=== PATIENT | male | born 1960 | race Caucasian/White ===

== ENCOUNTER 2019-04-15 14:40 | Inpatient (IN) | payer OTHER ==
--- NOTE | 2019-04-15 15:26 | RAD ---
RADIOGRAPH CHEST 1 VIEW: DATE: 04/15/2019 HISTORY: 59-year-old male with chest pain FINDINGS: The visualized lung urbina are clear. The cardiomediastinal silhouette and hilar shadows are normal. The lateral costophrenic angles are sharp. IMPRESSION: Negative.
[2019-04-15 15:29] LABS: #Basophils 0.1 thou/uL (0.0-0.2); #Eosinphils 0.1 thou/uL (0.0-0.7); #Lymphocytes 1.8 thou/uL (1.20-3.40); #Monocytes 0.8 thou/uL (0.11-0.59); #Neutrophils 6.8 thou/uL (1.40-6.50); %Basophils 0.6 % (0.0-1.0); %Monocytes 8.2 % (0.0-10.0); %Neutrophils 71.2 % (42.0-75.0); Hemoglobin 12.7 g/dL (14.0-18.0); Mean Corpuscular HGB CONC 34.8 g/dL (32.0-36.0); Mean Corpuscular Hemoglobin 34.8 pg (27.0-31.0); Mean Platelet Volume 7.5 fL (7.4-10.4); Platelet Count 163 thou/uL (130-400); RBC Distribution Width 12.3 % (11.5-14.5); Red Blood Cell (RBC) Count 3.64 mill/uL (4.70-6.10); White Blood Cell (WBC) Count 9.5 thou/uL (4.8-10.8)
[2019-04-15 15:48] LABS: ALT (SGPT) 10 U/L (8-55); AST (SGOT) 12 U/L (5-34); Albumin 3.5 g/dL (3.5-5.0); Alkaline Phosphatase 69 U/L (40-150); Anion Gap 12 mmol/L (10-20); BUN (Urea Nitrogen) 36 mg/dL (8.4-25.7); Bilirubin, Total 0.4 mg/dL (0.2-1.2); Calc. Creatinine Clearance 0 mL/min (70-130); Calcium 8.4 mg/dL (7.8-10.44); Carbon Dioxide 21 mmol/L (22-29); Chloride 112 mmol/L (98-107); Estimated GFR-MDRD 29; Globulin 2.3 g/dL (2.4-3.5); Glucose 86 mg/dL (70-105); Potassium 4.7 mmol/L (3.5-5.1); Protein, Total 5.8 g/dL (6.0-8.3); Sodium 140 mmol/L (136-145)
[2019-04-15 16:11] LABS: CKMB 1.4 ng/mL (0-6.6)
--- NOTE | 2019-04-15 16:20 | PDOC.FPRHP ---
- History of Present Illness Chief Complaint: Chest pain History of Present Illness: 59 yo male with hx of HTN, HLD, GERD, and degenerative disc disease presented to the ED today via EMS for chest pain and near syncope. Pt stated that he was working hard doing lawn work when he developed a burning pain in his mid back that radiated between his shoulder blades and into his chest. This was accompanied by shortness of breath and near syncope. After admission to the ED the pt's pain resolved. Pt states that he has experienced episodes like this 6- 8 times over the last 2 years, but not this severe. He denies any known cardiac disease. Family hx significant for a brother with an DE in his mid 50's. He believes that he has had a stress test before but does not recall when or what the results were. Pt admits to drinking very little fluid recently and to working outside in the heat more. ED Course: In route pt had systolic pressures in the 70's, responded appropriately to two 1L boluses to systolics 90-110. Initial troponin 0.032-->0.048, Cr 2.29. Consulted cardiology who suggested IMCU admission and CT aortic dissection protocol. - Allergies/Adverse Reactions Allergies Allergy/AdvReac Type Severity Reaction Status Date / Time Penicillins Allergy Verified 08/15/15 13:35 - History PMHx: HTN, GERD, lumbar DDD, HLD PSHx: Vasectomy FHx: Brother LANIE @56yo Social: 1-1.5ppd smoker, no alcohol or drugs, disabled - Review of Systems General: denies: fever/chills, fatigue Eyes: reports: vision changes (bright light during episode) Respiratory: denies: cough, congestion Cardiovascular: reports: chest pain. denies: palpitation, edema Gastrointestinal: denies: nausea, vomiting, abdominal pain Genitourinary: denies: incontinence Skin: denies: rashes Musculoskeletal: reports: pain (chronic lower back pain) Neurological: reports: syncope (near syncope today). denies: weakness - Vital signs BP: 108/64 HR: 73 RR: 18 Tmax: 97.7 Pox: 99% on RA Wt: 73 - Physical Exam Constitutional: NAD, awake, alert and oriented, well developed HEENT: EOMI Neck: supple, no JVD Chest: no-tender to palpation Heart: RRR, other (distant heart sounds) Lungs: CTAB, no respiratory distress Musculoskeletal: normal structure, normal tone Neurological: no focal deficit, CN II-XII intact Skin: no rash/lesions, capillary refill <2 seconds Psychiatric: normal mood and affect, good judgment and insight, intact recent and remote memory FMR H&P: Results - Labs Result Diagrams: 04/15/19 15:16 04/15/19 15:16 Lab results: WBC 9.5 thou/uL (4.8-10.8) 04/15/19 15:16 Hgb 12.7 g/dL (14.0-18.0) L 04/15/19 15:16 Hct 36.4 % (42.0-52.0) L 04/15/19 15:16 MCV 100.0 fL (78.0-98.0) H 04/15/19 15:16 Plt Count 163 thou/uL (130-400) 04/15/19 15:16 Neutrophils % 71.2 % (42.0-75.0) 04/15/19 15:16 Sodium 140 mmol/L (136-145) 04/15/19 15:16 Potassium 4.7 mmol/L (3.5-5.1) 04/15/19 15:16 Chloride 112 mmol/L (98-107) H 04/15/19 15:16 Carbon Dioxide 21 mmol/L (22-29) L 04/15/19 15:16 BUN 36 mg/dL (8.4-25.7) H 04/15/19 15:16 Creatinine 2.29 mg/dL (0.7-1.3) H 04/15/19 15:16 Glucose 86 mg/dL (70-105) 04/15/19 15:16 Calcium 8.4 mg/dL (7.8-10.44) 04/15/19 15:16 Total Bilirubin 0.4 mg/dL (0.2-1.2) 04/15/19 15:16 AST 12 U/L (5-34) 04/15/19 15:16 ALT 10 U/L (8-55) 04/15/19 15:16 Alkaline Phosphatase 69 U/L (40-150) 04/15/19 15:16 CK-MB (CK-2) 1.4 ng/mL (0-6.6) 04/15/19 15:16 B-Natriuretic Peptide 23.2 pg/mL (0-100) 04/15/19 15:16 Serum Total Protein 5.8 g/dL (6.0-8.3) L 04/15/19 15:16 Albumin 3.5 g/dL (3.5-5.0) 04/15/19 15:16 - EKG Interpretation EK LEAD EKG INTERPRETATION 12 lead EKG shows normal sinus rhythm, Rate (beats per minute): 78, Interpretation: normal EKG, [place] normal, Clinical impression: Normal EKG, No ischemic changes. MT interval 154 ms QRS duration 98 ms QT/QTc 389/444 ms. 12 lead EKG interpreted by Emergency Department Physician at time of study, 12 lead EKG shows normal sinus rhythm, Rate (beats per minute): 69, Interpretation : normal EKG, [place] normal, Clinical impression: Normal EKG, MT interval 69 ms QRS duration 98 ms QT/QTc 396/424 ms. - Radiology Interpretation Chest x-ray Status: report reviewed by me (Negative) FMR H&P: A/P - Problem List (1) Atypical chest pain Current Visit: Yes Status: Acute Code(s): R07.89 - OTHER CHEST PAIN (2) Troponin level elevated Current Visit: Yes Status: Acute Code(s): R74.8 - ABNORMAL LEVELS OF OTHER SERUM ENZYMES (3) Acute kidney injury Current Visit: Yes Status: Acute Code(s): N17.9 - ACUTE KIDNEY FAILURE, UNSPECIFIED (4) Hypertension Current Visit: Yes Status: Acute Code(s): I10 - ESSENTIAL (PRIMARY) HYPERTENSION (5) Chronic low back pain Current Visit: Yes Status: Acute Code(s): M54.5 - LOW BACK PAIN; G89.29 - OTHER CHRONIC PAIN - Plan Atypical Chest Pain Chest pain and near syncope when exerting himself, multiple episodes in the past. - Dr. Reece cardiology consulted, appreciate recommendations - CT aorta with dissection protocol ordered - Heart score of 6 - Initially low BP, responded to fluid boluses, cont w/ maintnence NS @ 125 - Aspirin and plavix - Repeat EKG if chest pain returns - PRN ntg if BP allows - Stress test and echo ordered for tomorrow if pt does not undergo cardiac cath - NPO after midnight - Risk factors: HTN, HLD, smoking, family history Acute Kidney Injury Patient admits to decreased PO intake and increased sweating due to recent yard work. No known history of renal disease - Initial Cr 2.26 - Received 3L boluses throughout ED workup - NS @ 125 - Will watch following contrast study - Trend Cr Hypertension - Home medications: Lisinopril and HCTZ - Holding due to hypotension Chronic low back pain - Continue home meds VTE prophylaxis: SCD's, pt is ambulatory Disposition/LOS: Admit to IMCU Expected LOS >48hrs FMR H&P: Upper Level - Pertinent history 59 yo M w/ PMH of HTN, HLD, tobacco abuse and gerd who presents for acute onset low back pain that radiated into his chest and back. Pt reports similar episodes occurring at least 6-8 times previously and the first episode being approx 2 years ago. He denied assocaited NCDC, SOB and diaphoresis. No numbness or tingling. He reports the pain usually subsides with rest and currently denies any pain. - Pertinent findings ROS: Gen No fever chills HEENT: No headached. Does report bright light vision changes associated with pain, currently denies CV: Reports CP, denies peripheral edema and palpitations Respiratory: Denies cough, congestion, sob, wheezing GI: Denies NVDC : No CVA tenderness MSK: Reports rt paralumbar mm pain that radiates upward, currently pain free Neuro: No headaches, numbness or tingling PE: Gen: NAD resting comfortably in bed HEENT: NCAT, PERRLA, EOMI CV: RRR No MRG, peripheral pulses equal throughout Respiratory: Lungs CTA bl no w/r/r Abd: Soft NTND bsx4 Neuro: No focal deficit MSK: No ttp rt paralumbar - Plan Date/Time: 04/15/19 1620 ITrevin, DO, have evaluated this patient and agree with findings/ plan as outlined by international specialist resident. Pertinent changes/additions are listed here. 1) Atypical chest pain: - pt has significant CAD risk factors and mildly elevated troponin, cardiology consulted from the ED, appreciate recs - will admit to IMCU given CP and low BP without identifiable source - trend troponins - cont IVF and monitor BP - EKG showed NSR 2) Elevated troponins: -see #1 - trend - will need stress/echo vs cardiac catheterization tbd by cardiology 3) TIFFANIE vs CKD - Pt admits to increase outside work - possibly 2/2 dehydration given low bp - s/p 3L NS in ED - cont IVF and trend daily BMP 4) HTN: hold home meds as pt currently hypotensive - if no resolution of renal function, consider dc rhonda - add medications as appropriate 5) HLD - cont statin 6) Macrocytic anemia - B12 folate in am - trend H/h 7) Tobacco abuse: - psychosocial rehabilitation counselor on cessation Dispo: stable, admit to IMCU and monitor pressures. Cont IVF resuscitation. Cardiology consulted appreciate recommendations. PPX: LVX, Protonix PCP: JOSE Varela OOT Code Status: Full
[2019-04-15 16:39] LABS: INR-International Normal Ratio 1.1; PTT 28.5 SEC (22.9-36.1); Prothrombin Time 13.9 SEC (12.0-14.7)
[2019-04-15 17:33] LABS: Troponin I 0.048 ng/mL (< 0.028)
[2019-04-15] MEDS ORDERED: Clopidogrel Bisulfate 300 MG TAB PO SCH (18:42)
[2019-04-15] MEDS ORDERED: Aspirin 81 mg Enteric Coated Tablet PO SCH (19:15)
[2019-04-15] MEDS ORDERED: Sodium Chloride 0.9% 1,000 ML IV SCH ×2 (19:15→19:38)
[2019-04-15] MEDS ORDERED: Nitroglycerin 0.4 MG TAB (25 Tab Bottle) PO PRN (19:38)
[2019-04-15] MEDS ORDERED: Ondansetron ODT 4 MG TAB PO PRN (19:38)
[2019-04-15] MEDS ORDERED: Ondansetron PF 4 MG/2 ML Vial IVP PRN (19:38)
[2019-04-15] MEDS ORDERED: Acetaminophen 325 MG TAB PO PRN (19:38)
[2019-04-15 20:10] VITALS: BMI 26.9
[2019-04-15 20:41] LABS: Cardiac Risk 8.2 (Less than 4.5); Cholesterol 205 mg/dl (< 200 Desired); HDL Cholesterol 25 mg/dL (>60 Neg Risk); Triglycerides 562 mg/dL (Less than 150)
[2019-04-15 20:47] LABS: Troponin I 0.037 ng/mL (< 0.028)
[2019-04-15] MEDS ORDERED: Famotidine/PF 20 mg/2ml Vial SLOW IVP SCH (21:00)
--- NOTE | 2019-04-15 23:20 | HP ---
I have examined the patient. I have discussed the case with Dr. Boateng. HISTORY OF PRESENT ILLNESS: Briefly, Mr. 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 He states he had been working for about 4 hours when he developed some right-sided back and chest pain radiating to the front of his chest. It became so severe that he "dropped to his knees." He was also short of breath. EMS was called and he was subsequently transferred to our hospital for further evaluation. PHYSICAL EXAMINATION: VITAL SIGNS: He was initially hypotensive with systolics in the 70s to 80s, now he is at 116/80. His pulse rate is now 66 and regular. GENERAL: He is awake, alert, in no distress. He states that his pain is resolved. EARS, NOSE, AND THROAT: No erythema or exudate. NECK: Supple. LUNGS: Clear, but diminished. No rales, rhonchi, or wheezes. CARDIAC: Heart rhythm is regular. S4 gallop. No murmur or rub noted. LUNGS: Clear, but diminished breath sounds. ABDOMEN: Flat and soft. No guarding, rebound, or rigidity. NEUROLOGICAL: No focal deficits. LABORATORY DATA: Troponins are negative x2 at 0.032 and 0.048. Sodium 140, potassium 4.7, chloride 112, bicarb 21, BUN is 36, and creatinine is 2.29. Liver enzymes are normal. CBC; white count is 9500, hemoglobin 12.7, and hematocrit 36.4 with an MCV of 100. His EKG shows no acute ischemic changes. ASSESSMENT: Chest and back pain. Comment; the patient does have several cardiac risk factors including male older than 50 with high cholesterol, high blood pressure, and heavy smoking history. I believe we should at least do a stress Myoview. Cardiology has already been consulted. He also evidently had a cardiac workup at [facility] in 2016, and we should try to get these records. Given the degree of back pain, he may be arndt to check a CPK for rhabdo in view of the acute kidney injury. PLAN: Plan is to admit the patient for observation and evaluation. Job ID: [id number]
--- NOTE | 2019-04-16 01:18 | CON ---
DATE OF CONSULTATION: CONSULTING PHYSICIAN: Jarrell Renner MD HISTORY OF PRESENT ILLNESS: Patient is a 59-year-old gentleman, who presents for evaluation of chest discomfort and weakness. The patient states for the past several years, he has back discomfort which radiates into his chest. He states this only occurs with exertion. The patient also noticed that it only occurs with severe exertion. Today, the patient once again was out, working for several hours in the heat when he became weak, lightheaded, and developed back discomfort. Patient denies having any present chest discomfort. PAST MEDICAL HISTORY: 1. Hypertension. 2. Dyslipidemia. PAST SURGICAL HISTORY: Vasectomy. MEDICATIONS: 1. Lisinopril 40 daily. 2. Zocor 10 at bedtime. 3. Hydrochlorothiazide 12.5 daily. 4. Gabapentin 600 mg daily. FAMILY HISTORY: There is positive family history of heart disease. SOCIAL HISTORY: Long history of tobacco abuse. REVIEW OF SYSTEMS: Ten-point system otherwise unremarkable. PHYSICAL EXAMINATION: GENERAL: This is a well-developed gentleman, in no acute distress. VITAL SIGNS: Blood pressure is 120/70. NECK: No jugular venous distention. LUNGS: Clear to auscultation. HEART: Regular rate and rhythm. Normal S1, S2. ABDOMEN: Nondistended. EXTREMITIES: Show no edema. VASCULAR: Radial pulses are 2+. LABORATORY DATA: Sodium 140, potassium 4.7, chloride 112, bicarbonate 21, BUN 36, and creatinine 2.29. Troponin was 0.032 and BNP was 23. INR 1.11. EKG revealed normal sinus rhythm with a normal ECG. IMPRESSION: 1. Exertional chest discomfort. 2. Hypertension. 3. Dyslipidemia. 4. Renal insufficiency. PLAN: This gentleman presents with exertional chest discomfort. The patient's creatinine is elevated. He has been dehydrated. The patient will undergo IV hydration. Further recommendations will follow. Job ID: [id number] [facility]
[2019-04-16] MEDS: Sodium Chloride 0.9% 1,000 ML IV SCH ×2 (04:23→13:04)
--- NOTE | 2019-04-16 06:41 | PDOC.FM ---
- Subjective Subjective: Pt denies any chest pain or shortness of breath through the night. We discussed the current plan for stress and echo today pending any new recommendations from cardiology. He expressed understanding of the plan and his questions were answered. - Objective MAR Reviewed: Yes Vital Signs & Weight: Vital Signs (12 hours) Temp Pulse Ox 04/16/19 04:16 97.8 F 04/15/19 23:38 98.5 F 04/15/19 20:00 98 04/15/19 19:17 98.0 F Weight Weight 75.523 kg Most Recent Monitor Data Heart Rate from ECG 61 NIBP 114/69 NIBP BP-Mean 84 Respiration from ECG 18 SpO2 92 I&O: 04/14/19 04/15/19 04/16/19 06:59 06:59 06:59 Intake Total 1850 Output Total 750 Balance 1100 Result Diagrams: 04/16/19 08:14 04/16/19 08:13 Phys Exam - Physical Examination Constitutional: NAD HEENT: moist MMs Neck: no JVD, full ROM Respiratory: no wheezing, clear to auscultation bilateral Cardiovascular: RRR heart sounds are distant Gastrointestinal: soft, non-tender Musculoskeletal: no edema, pulses present Neurological: moves all 4 limbs Psychiatric: normal affect, A&O x 3 Skin: no rash Dx/Plan (1) Atypical chest pain Code(s): R07.89 - OTHER CHEST PAIN Status: Acute (2) Acute kidney injury Code(s): N17.9 - ACUTE KIDNEY FAILURE, UNSPECIFIED Status: Acute (3) Troponin level elevated Code(s): R74.8 - ABNORMAL LEVELS OF OTHER SERUM ENZYMES Status: Acute (4) Hypertension Code(s): I10 - ESSENTIAL (PRIMARY) HYPERTENSION Status: Acute (5) Chronic low back pain Code(s): M54.5 - LOW BACK PAIN; G89.29 - OTHER CHRONIC PAIN Status: Acute - Plan Plan: Atypical chest pain: - pt has significant CAD risk factors and mildly elevated troponin, cardiology consulted from the ED, appreciate recs - will admit to IMCU given CP and low BP without identifiable source - daily aspirin 325mg - trend troponins, below - Lipid profile: hypertriglyceridemia and hypercholesterolemia - cont IVF and monitor BP - EKG showed NSR, repeat if new CP Elevated troponins: - trend 0.032 --> 0.048 --> 0.037 - will need stress/echo today vs cardiac catheterization tbd by cardiology TIFFANIE vs CKD - Pt admits to increase outside work and decreased fluid intake - possibly 2/2 dehydration given low bp - s/p 3L NS in ED - cont IVF, NS @ 125 - BMP trend: Cr 2.26 --> 1.51 HTN: hold home meds as pt currently hypotensive - if no resolution of renal function, consider dc VICENTE - add medications as appropriate HLD - cont statin Macrocytic anemia - B12 folate in am - trend 12.7 --> 13.1 Tobacco abuse: - sexual abuse counsellor on cessation Dispo: stable, admit to IMCU and monitor pressures. Cont IVF resuscitation. Cardiology consulted appreciate recommendations. PPX: LVX, Protonix PCP: JOSE TysonOT Code Status: Full
[2019-04-16 08:22] LABS: Hemoglobin 13.1 g/dL (14.0-18.0)
[2019-04-16 08:40] LABS: Anion Gap 12 mmol/L (10-20); BUN (Urea Nitrogen) 32 mg/dL (8.4-25.7); Calc. Creatinine Clearance 57 mL/min (70-130); Calcium 8.2 mg/dL (7.8-10.44); Carbon Dioxide 20 mmol/L (22-29); Chloride 113 mmol/L (98-107); Estimated GFR-MDRD 48; Glucose 94 mg/dL (70-105); Potassium 4.7 mmol/L (3.5-5.1); Sodium 140 mmol/L (136-145)
[2019-04-16] MEDS ORDERED: Aspirin 325 mg Enteric Coated Tablet PO SCH (09:00)
[2019-04-16] MEDS ORDERED: Ubidecarenone 50 MG CAP PO SCH (09:00)
--- NOTE | 2019-04-16 12:22 | PRG ---
DATE OF SERVICE: 04/16/2019 Mr. Gutierrez is down for a stress test and further workup will depend on the results of this. He has had no further significant chest discomfort since admission. His troponins are negative. He was seen in consultation by Dr. Reece, who awaits further hydration of the patient before further decision making. We appreciate his input. Job ID: [id number]
--- NOTE | 2019-04-16 12:49 | NM ---
NM Cardiac Stress W EF WF History: Chest pain Comparison: Nuclear medicine stress test 2011 Findings: Stress and rest performed after the intravenous administration of 29.1 and 11 mCi technetiu m 99m sestamibi, respectively. Adequate left ventricular uptake of radiotracer. Normal wall motion. Calculated ejection fraction is 65%. Impression: Normal nuclear medicine cardiac stress test and ejection fraction.
[2019-04-16 15:24] VITALS: TEMP 99.2
[2019-04-16] MEDS ORDERED: Atorvastatin Calcium 40 MG TAB PO SCH (21:00)
--- NOTE | 2019-04-17 04:13 | DIS ---
DATE OF ADMISSION: 04/15/2019 DATE OF DISCHARGE: 04/16/2019 RESIDENT: Naif Boateng DO. ADMITTING ATTENDING: Jarrell Renner MD DISCHARGE ATTENDING: Jarrell Renner MD. CONSULTS: Dr. Reece, Cardiology. PRIMARY DIAGNOSES: Atypical chest pain Elevated troponin levels Acute kidney injury. SECONDARY DIAGNOSES: Hypertension Chronic low back pain Macrocytic anemia. HISTORY OF PRESENT ILLNESS AND HOSPITAL COURSE: A 59-year-old male with history of hypertension, hyperlipidemia, GERD, and degenerative disk disease, presented to the ED today via EMS for chest pain and near syncope. The patient stated that he was working hard doing lawn work when he developed a burning pain in his mid back that radiated between his shoulder blades and then to his chest. This was accompanied by shortness of breath and near syncope. After admission to the ED, the patient's pain resolved. The patient states that he has experienced episodes like this 6 to 8 times over the last 2 years but never this severe. He denies any known cardiac disease. Family history is significant for a brother with an UT in his mid 50s. He believes that he has had a stress test before but he does not recall when or what the results were. The patient admits to drinking very little fluid recently and to working outside in the heat more. En route to the ED, the patient had systolic pressures in the 70s which responded after 2 fluid boluses to systolics in the 90s to 110. Initial troponins trended from 0.032 to 0.048 to 0.038, initial creatinine was 2.29. Dr. Reece, Cardiology was consulted and suggested admission to the IM and did not feel a CTA of the aorta was necessary. The patient was started on normal saline at 150/hour to continue fluid resuscitation. The following day, the patient had a stress test which resulted normal. Dr. Reece saw him again and felt like he was stable for discharge and out pt cardiology follow up for possible further workup. The patient did not experience anymore chest pain throughout his stay. Following fluid resuscitation, the patient's creatinine improved to 1.51 and his blood pressures normalized. Lipid profile showed a triglyceride level of 562 and cholesterol of 205. Painter Drum suggested that his Crestor be stopped and he be started on atorvastatin 40 mg daily as well as Vascepa 2 g daily along with his home blood pressure medications and full dose daily aspirin. DISCHARGE MEDICATIONS: 1. Nexium 20 mg p.o. daily. 2. Gabapentin 600 mg p.o. at bedtime. 3. Hydrochlorothiazide 12.5 p.o. daily. 4. Lisinopril 40 mg p.o. daily. 5. Aspirin 325 mg p.o. daily. 6. Lipitor 40 mg p.o. at bedtime. 7. Vascepa 2 g p.o. b.i.d. 8. Coenzyme Q10 100 mg p.o. daily. DISPOSITION: Stable. DISCHARGE INSTRUCTIONS: 1. Location: Home. 2. Diet: Heart healthy. 3. Activity: As tolerated. No restrictions. 4. Follow up with PCP, Dr. Raymundo Varela within 7 days and Cardiology as recommended. Job ID: [id number] [id number]
== END 2019-04-16 18:24 | disposition home or self-care (01) | DRG 313 ==
LOC: ERS 14:40 → IMCU/EMU 17:11
PROVIDERS: ADMIT Family Medicine; ATTEND Family Medicine
DX: R07.89 Other chest pain (principal); N17.9 Acute kidney failure, unspecified; E78.5 Hyperlipidemia, unspecified; M51.36 Other intervertebral disc degeneration, lumbar region; F17.210 Nicotine dependence, cigarettes, uncomplicated; K21.9 Gastro-esophageal reflux disease without esophagitis; R74.8 Abnormal levels of other serum enzymes; G89.29 Other chronic pain; E86.0 Dehydration; I12.9 Hypertensive chronic kidney disease with stage 1 through stage 4 chronic kidney disease, or unspecified chronic kidney disease; D63.1 Anemia in chronic kidney disease; N18.9 Chronic kidney disease, unspecified; Z88.0 Allergy status to penicillin; Z98.52 Vasectomy status; Z79.899 Other long term (current) drug therapy
CPT/HCPCS: 36415; 71045; 78452; 80048; 80053; 80061; 82553; 83880; 84484; 85014; 85018; 85025; 85610; 85730; 90471; 90732; 93005; 93017; 93306; A9500; G0009; S0028

== ENCOUNTER 2019-07-12 22:12 | Emergency (ER) | payer OTHER ==
[~2019-07-12 22:12] MED LIST: ISOVUE-370 76%-LOCM 1 ML ONE
[2019-07-12 23:41] LABS: #Basophils 0.1 thou/uL (0.0-0.2); #Eosinphils 1.6 thou/uL (0.0-0.7); #Lymphocytes 2.5 thou/uL (1.20-3.40); #Monocytes 0.7 thou/uL (0.11-0.59); %Basophils 0.5 % (0.0-1.0); %Eosinophils 12.7 % (0.0-10.0); %Lymphocytes 19.2 % (21.0-51.0); %Monocytes 5.5 % (0.0-10.0); %Neutrophils 62.1 % (42.0-75.0); Hemoglobin 16.1 g/dL (14.0-18.0); Mean Corpuscular HGB CONC 34.2 g/dL (32.0-36.0); Mean Corpuscular Volume 99.5 fL (78.0-98.0); Mean Platelet Volume 7.9 fL (7.4-10.4); Platelet Count 223 thou/uL (130-400); Red Blood Cell (RBC) Count 4.75 mill/uL (4.70-6.10)
[2019-07-13 00:08] LABS: ALT (SGPT) 15 U/L (8-55); AST (SGOT) 15 U/L (5-34); Albumin 4.3 g/dL (3.5-5.0); Alkaline Phosphatase 97 U/L (40-110); Anion Gap 13 mmol/L (10-20); BUN (Urea Nitrogen) 22 mg/dL (8.4-25.7); Bilirubin, Total 0.6 mg/dL (0.2-1.2); Calc. Creatinine Clearance 0 mL/min (70-130); Calcium 9.4 mg/dL (7.8-10.44); Carbon Dioxide 26 mmol/L (22-29); Chloride 107 mmol/L (98-107); Estimated GFR-MDRD 49; Globulin 3.1 g/dL (2.4-3.5); Glucose 102 mg/dL (70-105); Lipase 24 U/L (8-78); Potassium 4.9 mmol/L (3.5-5.1); Protein, Total 7.4 g/dL (6.0-8.3); Sodium 141 mmol/L (136-145)
[2019-07-13 04:25] LABS: Bilirubin Negative (Negative); Blood, Urine Negative (Negative); Clarity Clear (Clear); Glucose, Urine (Dipstick) Normal (Negative); Leukocyte Negative Leu/uL (Negative); Nitrite Negative (Negative); Protein, Urine (Dipstick) Negative (Neg-Trace); Urobilinogen Normal mg/dL (Less than 2)
--- NOTE | 2019-07-13 07:08 | CT ---
PRELIMINARY REPORT/[facility]/EMERGENCY AFTER HOURS PROCEDURE: PROCEDURE INFORMATION: Exam: CT Abdomen and pelvis with contrast Exam date and time: 07/13/2019 12:12 AM Clinical history: 59 years old, male; Abdominal pain; Patient HX: 59 y/o m presents to ED C/O x 1 wee k of abd pain TECHNIQUE: Imaging protocol: Computed tomography of the abdomen and pelvis with intravenous contrast. COMPARISON: No relevant prior studies available. FINDINGS: Lungs: Mild centrilobular emphysematous disease. Small right lower lobe sub-4 mm pulmonary nodules. Liver: Normal attenuation. No mass. Gallbladder and bile ducts: Normal. No calcified stones. No ductal dilation. Pancreas: Normal. No ductal dilation. Spleen: No splenomegaly. No masses Adrenals: Normal. No mass. Kidneys and ureters: Normal. No hydronephrosis. Stomach and bowel: Diverticulosis. Minimal wall thickening of the rectosigmoid colon. Minimal cecal w all thickening. Wall thickening of the distal ileum with trace adjacent mesenteric edema Appendix: No evidence of appendicitis. Intraperitoneal space: See Stomach And Bowel Finding. Vasculature: Unremarkable. No abdominal aortic aneurysm. Lymph nodes: No enlarged lymph nodes. Bladder: Unremarkable as visualized. Reproductive: Unremarkable as visualized. Bones/joints: Moderate to severe degenerative spondylosis with scoliosis and mild canal stenosis at L 3/L4. Soft tissues: Unremarkable. IMPRESSION: 1. Mild to moderate distal small bowel wall thickening involving the ileocecal valve suggestive of in flammatory terminal ileitis. Please review history for possible Crohn's disease. 2. There are additional nonemergent findings discussed in the body of the report. Thank you for allowing us to participate in the care of your patient. Dictated and Authenticated by: Rashad Bee MD 07/13/2019 12:54 AM Central Time ([place] & [place]) FINAL REPORT EMERGENCY AFTER HOURS CT ABDOMEN AND PELVIS WITH CONTRAST: Date: 07/12/19 COMPARISON: 08/15/15. FINDINGS/IMPRESSION: I agree with the findings and impression given in the preliminary report per [facility] physician. 1. There is thickening of the distal ileum with surrounding stranding change consistent with enterit is. This may be secondary to inflammatory bowel disease. 2. Diverticulosis.
== END 2019-07-13 01:29 | disposition home or self-care (01) ==
LOC: ERS 22:12
DX: K52.9 Noninfective gastroenteritis and colitis, unspecified (principal); I10 Essential (primary) hypertension; F17.210 Nicotine dependence, cigarettes, uncomplicated; Z79.899 Other long term (current) drug therapy
CPT/HCPCS: 36415; 74177; 80053; 81003; 83690; 85025; 96372; J0500; Q9966

== ENCOUNTER 2019-08-10 15:28 | Emergency (ER) | payer OTHER ==
[2019-08-10 16:10] LABS: #Eosinphils 0.8 thou/uL (0.0-0.7); #Lymphocytes 1.7 thou/uL (1.20-3.40); #Monocytes 0.5 thou/uL (0.11-0.59); %Basophils 0.4 % (0.0-1.0); %Lymphocytes 15.2 % (21.0-51.0); %Monocytes 4.3 % (0.0-10.0); %Neutrophils 73.1 % (42.0-75.0); Hemoglobin 14.5 g/dL (14.0-18.0); Mean Corpuscular HGB CONC 33.9 g/dL (32.0-36.0); Mean Corpuscular Hemoglobin 33.6 pg (27.0-31.0); Mean Corpuscular Volume 98.9 fL (78.0-98.0); Mean Platelet Volume 7.8 fL (7.4-10.4); Platelet Count 205 thou/uL (130-400); Red Blood Cell (RBC) Count 4.33 mill/uL (4.70-6.10); White Blood Cell (WBC) Count 10.9 thou/uL (4.8-10.8)
[2019-08-10 16:24] LABS: Bilirubin Negative (Negative); Blood, Urine Negative (Negative); Clarity Clear (Clear); Glucose, Urine (Dipstick) Normal (Negative); Leukocyte Negative Leu/uL (Negative); Nitrite Negative (Negative); Protein, Urine (Dipstick) Negative (Neg-Trace); Urobilinogen Normal mg/dL (Less than 2)
[2019-08-10 16:26] LABS: Lactic Acid 1.4 mmol/L (0.5-2.2)
[2019-08-10 16:33] LABS: ALT (SGPT) 28 U/L (8-55); AST (SGOT) 22 U/L (5-34); Albumin 3.9 g/dL (3.5-5.0); Alkaline Phosphatase 81 U/L (40-110); Anion Gap 14 mmol/L (10-20); BUN (Urea Nitrogen) 15 mg/dL (8.4-25.7); Bilirubin, Total 0.4 mg/dL (0.2-1.2); Calc. Creatinine Clearance 0 mL/min (70-130); Calcium 9.5 mg/dL (7.8-10.44); Carbon Dioxide 28 mmol/L (22-29); Chloride 103 mmol/L (98-107); Estimated GFR-MDRD 74; Globulin 2.7 g/dL (2.4-3.5); Glucose 93 mg/dL (70-105); Lipase 17 U/L (8-78); Potassium 4.5 mmol/L (3.5-5.1); Protein, Total 6.6 g/dL (6.0-8.3); Sodium 140 mmol/L (136-145)
--- NOTE | 2019-08-10 17:46 | CT ---
CT OF THE ABDOMEN AND PELVIS WITH IV CONTRAST INDICATION: Periumbilical and right lower quadrant abdominal pain COMPARISON: CT abdomen and pelvis dated July 13, 2019 FINDINGS: ABDOMEN: Lung bases: Clear Liver: No focal lesion. Gallbladder: Normal appearing. Pancreas: Normal. Adrenal glands: Normal. Spleen: Normal. Kidneys and ureters: Normal. No hydronephrosis. Vasculature: There is moderate vascular calcification involving the abdominal pelvic vasculature. Lymph nodes:No lymphadenopathy. Free fluid in abdomen:No free fluid is evident. PELVIS: Small and large bowel: There is improvement in the bowel wall thickening involving the distal ileum a nd terminal ileum from the comparison examination; however, there is been interval development of bowel wall dilatation with surrounding inflammatory change and bowel wall thickening involving loops of jejunum within the left upper abdomen, left mid abdomen and left lower central abdomen. There is a transition zone to normal appearing bowel within the lower midline abdomen on image 48 of series 2. No drainable fluid collection is evident. There is opacification of the arterial mesenteric arcades to the inflamed bowel loops. The visualized venous drainage also appears to be patent. No enl arged mesenteric lymph nodes are noted. There is colonic diverticulosis. The colon is largely decompressed. Appendix:Normal Bladder: Moderately distended Rectal and perirectal soft tissues:Normal. Reproductive structures: Prostate is enlarged measuring 5 cm. Free fluid in pelvis: No free fluid is evident. Lymphadenopathy pelvis: No lymphadenopathy is evident. Osseous structures: No acute osseous abnormality. No destructive osteolytic or osteoblastic lesion i s identified. There is scattered degenerative and osteoarthritic changes. Soft tissues:Normal. IMPRESSION: 1. Interval development bowel dilatation and bowel wall thickening with perienteric inflammatory becerra ge is suspicious for a regional enteritis of the jejunum. The enteritis previously seen involving the terminal ileum and distal limb has improved. Findings remain suspicious for an infectious or infl ammatory enteritis. No drainable fluid collection is evident. 2. Moderate distention of the bladder. 3. Prostate enlargement 4. Colonic diverticulosis without evidence of active diverticulitis. 5. There are moderate vascular calcifications seen involving the visualized vasculature.
== END 2019-08-10 18:49 | disposition home or self-care (01) ==
LOC: ERS 15:28
DX: K52.9 Noninfective gastroenteritis and colitis, unspecified (principal); E78.5 Hyperlipidemia, unspecified; I10 Essential (primary) hypertension; Z87.891 Personal history of nicotine dependence; Z79.899 Other long term (current) drug therapy
CPT/HCPCS: 36415; 74177; 80053; 81003; 83605; 83690; 85025; 86850; 86900; 86901; 93005

== ENCOUNTER 2020-09-30 16:35 | Emergency (ER) | payer OTHER ==
[2020-10-01 01:14] LABS: SARS-CoV-2 MS2 Positive; SARS-CoV-2 N Gene Positive; SARS-CoV-2 S Gene Positive; SARS-CoV-2 by NAA DETECTED (NotDetected); SARS-CoV-2 orf1ab Positive
== END 2020-09-30 18:26 | disposition home or self-care (01) ==
LOC: ERS 16:35
DX: U07.1 COVID-19 (principal); E78.5 Hyperlipidemia, unspecified; I10 Essential (primary) hypertension; F17.210 Nicotine dependence, cigarettes, uncomplicated
CPT/HCPCS: 87635; 99284; U0003

== ENCOUNTER 2021-07-28 12:31 | Emergency (ER) | payer OTHER | END 2021-07-28 16:15 | disposition left against medical advice (07) | LOC: ERS 12:31 | DX: Z53.21 Procedure and treatment not carried out due to patient leaving prior to being seen by health care provider (principal) ==

== ENCOUNTER 2022-03-11 09:24 | Outpatient (CLI) | payer OTHER ==
[2022-03-11 11:18] LABS: Hemoglobin 15.1 g/dL (13.5-17.5); Mean Corpuscular HGB CONC 33.7 g/dL (32.0-36.0); Mean Corpuscular Hemoglobin 32.5 pg (27.0-33.0); Mean Corpuscular Volume 96.3 fl (81.2-95.1); Mean Platelet Volume 10.2 fl (7.4-10.4); Platelet Count 208 10x3/uL (150-450); RBC Distribution Width 12.6 % (11.5-14.5); Red Blood Cell (RBC) Count 4.65 10x6/uL (4.32-5.72); White Blood Cell (WBC) Count 6.5 10x3/uL (3.5-10.5)
[2022-03-11 11:45] LABS: Anion Gap 16 mmol/L (10-20); BUN (Urea Nitrogen) 17 mg/dL (8.4-25.7); Calc. Creatinine Clearance 0 mL/min (70-130); Calcium 9.5 mg/dL (7.8-10.44); Carbon Dioxide 27 mmol/L (23-31); Chloride 103 mmol/L (98-107); Glucose 100 mg/dL (80-115); Potassium 4.5 mmol/L (3.5-5.1); Sodium 141 mmol/L (136-145)
[2022-03-11 20:34] LABS: SARS-CoV-2 PCR by NAA Not Detected (NotDetected)
== END 2022-03-11 09:25 | disposition home or self-care (01) ==
LOC: LABBT 09:24
PROVIDERS: ATTEND Neurological Surgery
DX: Z01.818 Encounter for other preprocedural examination (principal); M48.062 Spinal stenosis, lumbar region with neurogenic claudication; Z20.822 Contact with and (suspected) exposure to COVID-19
CPT/HCPCS: 80048; 85027; 93005; 93010; U0003; U0005

== ENCOUNTER 2022-03-16 05:26 | Observation (INO) | payer OTHER ==
[2022-03-16] MEDS ORDERED: Levofloxacin 500 mg/D5W 100 ml Premix Bag ONE ×2 (06:33→11:42)
[2022-03-16] MEDS ORDERED: diphenhydrAMINE 50 MG/ML VIAL ONE ×2 (06:48→07:09)
[2022-03-16] MEDS ORDERED: PROPOFOL 200 MG/20 ML VIAL ONE (07:09)
[2022-03-16] MEDS ORDERED: ePHEDrine 50 MG/ML VIAL ONE (07:09)
[2022-03-16] MEDS ORDERED: Dexamethasone 20 MG/5 ML VIAL ONE (07:09)
[2022-03-16] MEDS ORDERED: Glycopyrrolate 0.2 MG/ML 5 ML SYRINGE ONE (07:09)
[2022-03-16] MEDS ORDERED: Rocuronium Bromide 10 MG/ML (10ML VIAL) ONE (07:09)
[2022-03-16] MEDS ORDERED: PHENYLEPHRINE-NS 100 MCG/ML 10 ML SYRINGE ONE (07:09)
[2022-03-16] MEDS ORDERED: Ondansetron PF 4 MG/2 ML Vial ONE (07:09)
[2022-03-16] MEDS ORDERED: Lidocaine 1% PF 5 ML VIAL ONE (07:09)
[2022-03-16] MEDS ORDERED: Ketorolac Tromethamine 30 MG/ML VIAL ONE (07:09)
[2022-03-16] MEDS ORDERED: SUGAMMADEX SODIUM 200 MG/2 ML VIAL ONE (12:38)
[2022-03-16] MEDS ORDERED: Dexmedetomidine 200 MCG/2 ML VIAL ONE (12:38)
[2022-03-16] MEDS ORDERED: fentaNYL Citrate/PF 100 MCG/2 ML SYRINGE ONE (12:38)
[2022-03-16] MEDS ORDERED: Clindamycin/D5W 900 mg/50 ml Premix Bag ONE (12:43)
[2022-03-16] MEDS ORDERED: Ondansetron HCl/PF 4 MG/2 ML Vial IVP PRN (14:22)
[2022-03-16] MEDS ORDERED: Promethazine HCl 25 MG/ML VIAL IM PRN ×2 (14:22→15:00)
[2022-03-16] MEDS ORDERED: Morphine Sulfate 2 MG/ML SYRINGE SLOW IVP PRN (14:22)
[2022-03-16] MEDS ORDERED: Promethazine HCl 25 MG/ML VIAL IVPB PRN (14:22)
[2022-03-16] MEDS ORDERED: HYDROmorphone 2 MG/ML VIAL SLOW IVP PRN (14:22)
[2022-03-16] MEDS ORDERED: PACU-Morphine 4MG/ML VIAL SLOW IVP PRN (14:22)
[2022-03-16] MEDS ORDERED: Acetaminophen/Codeine 30-300mg Tablet PO PRN (15:00)
[2022-03-16] MEDS ORDERED: Promethazine 25 MG TAB PO PRN (15:00)
[2022-03-16] MEDS ORDERED: Promethazine HCl 12.5 MG SUPP PR PRN (15:00)
[2022-03-16] MEDS ORDERED: diphenhydrAMINE 25 MG CAP PO PRN (15:00)
[2022-03-16] MEDS ORDERED: Morphine 4 MG/ML VIAL SLOW IVP PRN (15:00)
[2022-03-16] MEDS ORDERED: diphenhydrAMINE 50 MG/ML VIAL IVP PRN (15:00)
[2022-03-16] MEDS ORDERED: Morphine 2 MG/ML VIAL SLOW IVP PRN (15:00)
[2022-03-16] MEDS ORDERED: Milk Of Magnesia 30 ML UDCUP PO PRN (15:00)
[2022-03-16] MEDS ORDERED: Ondansetron PF 4 MG/2 ML Vial IVP PRN (15:00)
[2022-03-16] MEDS ORDERED: Mag-Al 1200 mg/1200 mg/30 ML UDCUP PO PRN (15:00)
[2022-03-16] MEDS ORDERED: traMADol HCl 50 MG TAB PO PRN ×2 (15:00)
[2022-03-16] MEDS ORDERED: Fentanyl 100 MCG/2 ML VIAL ONE (15:05)
[2022-03-16] MEDS: Sodium Chloride 0.9% 1,000 ML IV SCH (17:33)
[2022-03-16] MEDS: Cyclobenzaprine 10 MG TAB PO PRN (17:39)
[2022-03-16 17:45] VITALS: BMI 27.9
[2022-03-16] MEDS: Clindamycin/D5W 900 MG in Premix Bag 1 BAG IVPB SCH (20:56)
[2022-03-16] MEDS: Acetaminophen/Codeine 30-300mg Tablet PO PRN (20:57)
[2022-03-16] MEDS ORDERED: Gabapentin 300 MG CAP PO SCH (21:00)
[2022-03-17] MEDS: Cyclobenzaprine 10 MG TAB PO PRN (01:09)
[2022-03-17] MEDS: Acetaminophen/Codeine 30-300mg Tablet PO PRN ×3 (01:09→08:02)
[2022-03-17] MEDS: Clindamycin/D5W 900 MG in Premix Bag 1 BAG IVPB SCH (05:12)
[2022-03-17] MEDS: Sodium Chloride 0.9% 1,000 ML IV SCH (07:16)
[2022-03-17 08:52] VITALS: BP 129/78; TEMP 98.1
[2022-03-17] MEDS ORDERED: Lisinopril 20 MG TAB PO SCH (09:00)
== END 2022-03-17 11:15 | disposition home or self-care (01) ==
LOC: SDC 05:26 → SURG A 14:42
PROVIDERS: ADMIT Neurological Surgery; ATTEND Neurological Surgery
PROC: 0SG0071 Fusion of Lumbar Vertebral Joint with Autologous Tissue Substitute, Posterior Approach, Posterior Column, Open Approach (ICD-10-PCS; principal; 2022-03-16)
PROC: 0SG3071 Fusion of Lumbosacral Joint with Autologous Tissue Substitute, Posterior Approach, Posterior Column, Open Approach (ICD-10-PCS; 2022-03-16)
DX: M48.062 Spinal stenosis, lumbar region with neurogenic claudication (principal); M41.86 Other forms of scoliosis, lumbar region; Z79.899 Other long term (current) drug therapy; Z88.0 Allergy status to penicillin
CPT/HCPCS: 76000; 96365; 96366; G0378; J1100; J1200; J1885; J1956; J2405; J2704; J3010; J3370; J3490

== ENCOUNTER 2022-04-09 09:12 | Outpatient (CLI) | payer OTHER | END 2022-04-09 09:13 | disposition home or self-care (01) | LOC: TBSIIMAG 09:12 | PROVIDERS: ATTEND Neurological Surgery | DX: M48.062 Spinal stenosis, lumbar region with neurogenic claudication (principal); M47.816 Spondylosis without myelopathy or radiculopathy, lumbar region; Z98.890 Other specified postprocedural states | CPT/HCPCS: 72100 ==

== ENCOUNTER 2022-04-21 11:57 | Outpatient (CLI) | payer OTHER | END 2022-04-21 11:58 | disposition home or self-care (01) | LOC: BICCT 11:57 | PROVIDERS: ATTEND Physician Assistant | DX: M47.26 Other spondylosis with radiculopathy, lumbar region (principal); M51.16 Intervertebral disc disorders with radiculopathy, lumbar region; M41.9 Scoliosis, unspecified; M48.061 Spinal stenosis, lumbar region without neurogenic claudication; M48.07 Spinal stenosis, lumbosacral region; T84.296A Other mechanical complication of internal fixation device of vertebrae, initial encounter; Z98.890 Other specified postprocedural states | CPT/HCPCS: 72131 ==

== ENCOUNTER 2022-05-26 13:57 | Outpatient (CLI) | payer OTHER | END 2022-05-26 13:58 | disposition home or self-care (01) | LOC: TBSIIMAG 13:57 | PROVIDERS: ATTEND Neurological Surgery | DX: M47.26 Other spondylosis with radiculopathy, lumbar region (principal); Z98.890 Other specified postprocedural states | CPT/HCPCS: 72100 ==

== ENCOUNTER 2022-06-24 09:55 | Outpatient (CLI) | payer OTHER ==
[2022-06-24 13:44] LABS: Hemoglobin 14.3 g/dL (13.5-17.5); Mean Corpuscular HGB CONC 32.6 g/dL (32.0-36.0); Mean Corpuscular Hemoglobin 31.4 pg (27.0-33.0); Mean Corpuscular Volume 96.1 fl (81.2-95.1); Mean Platelet Volume 10.5 fl (7.4-10.4); Platelet Count 223 10x3/uL (150-450); RBC Distribution Width 13.8 % (11.5-14.5); Red Blood Cell (RBC) Count 4.56 10x6/uL (4.32-5.72); White Blood Cell (WBC) Count 6.5 10x3/uL (3.5-10.5)
[2022-06-24 13:45] LABS: Anion Gap 20 mmol/L (10-20); Calc. Creatinine Clearance 0 mL/min (70-130); Calcium 9.4 mg/dL (7.8-10.44); Carbon Dioxide 23 mmol/L (23-31); Chloride 104 mmol/L (98-107); Estimated GFR 93; Glucose 94 mg/dL (80-115); Potassium 4.6 mmol/L (3.5-5.1); Sodium 142 mmol/L (136-145)
[2022-06-24 13:52] LABS: BUN (Urea Nitrogen) 14 mg/dL (8.4-25.7)
== END 2022-06-24 09:56 | disposition home or self-care (01) ==
LOC: LABBT 09:55
PROVIDERS: ATTEND Neurological Surgery
DX: Z01.818 Encounter for other preprocedural examination (principal); Z20.822 Contact with and (suspected) exposure to COVID-19
CPT/HCPCS: 80048; 85027; 87811; 93005; 93010

== ENCOUNTER 2022-11-23 13:27 | Outpatient (CLI) | payer OTHER | END 2022-11-23 13:28 | disposition home or self-care (01) | LOC: TBSIIMAG 13:27 | PROVIDERS: ATTEND Neurological Surgery | DX: M47.26 Other spondylosis with radiculopathy, lumbar region (principal); M51.16 Intervertebral disc disorders with radiculopathy, lumbar region; M46.06 Spinal enthesopathy, lumbar region; Z98.890 Other specified postprocedural states | CPT/HCPCS: 72100 ==

== ENCOUNTER 2023-11-22 16:47 | Emergency (ER) | payer OTHER ==
[~2023-11-22 16:47] MED LIST changes: -ISOVUE-370 76%-LOCM 1 ML ONE; +Iopamidol-370 76% 500 ML MDV (1 ML CHARGE) ONE
[2023-11-22 18:16] LABS: #Eosinphils 0.1 thou/uL (0.0-0.7); #Monocytes 0.4 thou/uL (0.11-0.59); #Neutrophils 3.6 thou/uL (1.40-6.50); %Basophils 0.3 % (0.0-1.0); %Eosinophils 1.5 % (0.0-10.0); %Lymphocytes 29.8 % (21.0-51.0); %Monocytes 7.1 % (0.0-10.0); Hematocrit 42.8 % (42.0-52.0); Hemoglobin 14.5 g/dL (14.0-18.0); Mean Corpuscular HGB CONC 33.9 g/dL (32.0-36.0); Mean Corpuscular Volume 97.5 fl (78.0-98.0); Mean Platelet Volume 9.5 fL (7.4-10.4); Platelet Count 219 10x3/uL (130-400); RBC Distribution Width 13.1 % (11.5-14.5); Red Blood Cell (RBC) Count 4.39 mill/uL (4.70-6.10); White Blood Cell (WBC) Count 5.9 10x3/uL (4.8-10.8)
[2023-11-22 18:53] LABS: ALT (SGPT) 17 U/L (8-55); AST (SGOT) 16 U/L (5-34); Alkaline Phosphatase 68 U/L (40-110); Anion Gap 11 mmol/L (10-20); BUN (Urea Nitrogen) 16 mg/dL (8.4-25.7); Bilirubin, Total 0.4 mg/dL (0.2-1.2); Calc. Creatinine Clearance 0 mL/min (70-130); Calcium 9.4 mg/dL (7.8-10.44); Carbon Dioxide 27 mmol/L (23-31); Chloride 105 mmol/L (98-107); Estimated GFR 81; Glucose 92 mg/dL (80-115); Potassium 4.4 mmol/L (3.5-5.1); Sodium 139 mmol/L (136-145)
[2023-11-22 19:16] LABS: Bacteria/HPF None Seen HPF (None Seen); Bilirubin Negative (Negative); Blood, Urine Negative (Negative); CAUTI Indications for Culture Dysuria,urgency,freq; Clarity Clear (Clear); Glucose, Urine (Dipstick) Normal (Negative); Ketone, Urine Negative (Negative); Leukocyte Negative Leu/uL (Negative); Nitrite Negative (Negative); Protein, Urine (Dipstick) Negative (Neg-Trace); RBC/HPF 0-3 HPF (0-3); Specific Gravity, Urine 1.017 (1.002-1.036); Squamous Epithelial None Seen HPF (0-3); Urobilinogen Normal mg/dL (Less than 2); WBC/HPF 0-3 HPF (0-3); pH, Urine 5.5 (5.0-9.0)
[2023-11-22 19:24] LABS: Urine Culture Reflex No No
== END 2023-11-22 22:12 | disposition home or self-care (01) ==
LOC: ERS 16:47
DX: K52.9 Noninfective gastroenteritis and colitis, unspecified (principal); E78.5 Hyperlipidemia, unspecified; I10 Essential (primary) hypertension; F17.220 Nicotine dependence, chewing tobacco, uncomplicated; Z79.899 Other long term (current) drug therapy
CPT/HCPCS: 36415; 74177; 80053; 81001; 83690; 85025; 96360; Q9967

== ENCOUNTER 2024-08-26 12:09 | Emergency (ER) | payer OTHER ==
[2024-08-26] MEDS ORDERED: HYDROcodone/Acetaminophen 10/325 mg Tablet ONE (13:31)
== END 2024-08-26 16:01 | disposition home or self-care (01) ==
LOC: ERS 12:09
DX: M54.50 Low back pain, unspecified (principal); G89.29 Other chronic pain; I10 Essential (primary) hypertension; E78.5 Hyperlipidemia, unspecified; E11.9 Type 2 diabetes mellitus without complications; F17.220 Nicotine dependence, chewing tobacco, uncomplicated; Z79.899 Other long term (current) drug therapy; Z79.82 Long term (current) use of aspirin; W18.30XA Fall on same level, unspecified, initial encounter
CPT/HCPCS: 70450; 72125; 72128; 72131

== ENCOUNTER 2024-10-13 10:06 | Outpatient (CLI) | payer OTHER | END 2024-10-13 10:07 | disposition home or self-care (01) | LOC: BICMRI 10:06 | PROVIDERS: ATTEND Nurse Practitioner Family | DX: M54.42 Lumbago with sciatica, left side (principal); M54.41 Lumbago with sciatica, right side; G89.29 Other chronic pain; R20.0 Anesthesia of skin; R20.2 Paresthesia of skin; M54.9 Dorsalgia, unspecified; M48.05 Spinal stenosis, thoracolumbar region; M48.061 Spinal stenosis, lumbar region without neurogenic claudication; M48.07 Spinal stenosis, lumbosacral region | CPT/HCPCS: 72148 ==